=== PATIENT | female | born 1965 | race Asian ===

== ENCOUNTER 2017-01-17 11:08 | Inpatient (IN) | payer OTHER ==
[~2017-01-17] VITALS: Ht 160 cm; Wt 59.2 kg
[2017-01-17 12:52] LABS: BASOPHIL % 0.5 % (0-2); PLATELET COUNT 224 x10^3mcL (130-400); RED CELL DISTRIBUTION WIDTH 13.3 % (11.5-14.5)
[2017-01-17 13:04] LABS: CALCIUM 8.8 mg/dL (8.5-10.1); CARBON DIOXIDE 27.9 mmol/L (21-32); CHLORIDE SERUM 108 mmol/L (98-107); CREATININE SERUM 0.7 mg/dL (0.6-1.0); GFR1 > 60 mL/min; GLUCOSE SERUM 105 mg/dL (74-106); POTASSIUM SERUM 3.7 mmol/L (3.5-5.1); SODIUM SERUM 145 mmol/L (136-145)
[2017-01-17 13:11] LABS: ALBUMIN 3.9 g/dL (3.4-5.0); ALKALINE PHOSPHATASE 55 U/L (46-116); ALT/SGPT 21 U/L (14-59); AST/SGOT 17 U/L (15-37); BILIRUBIN TOTAL 1.12 mg/dL (0.20-1.00); CHOLESTEROL 192 mg/dL (<200); CHOLESTEROL/HDL RATIO 3.8; HDL CHOLESTEROL 50 mg/dL (40-60); LIPASE 111 IU/L (73-393); TOTAL PROTEIN, SERUM 7.6 g/dL (6.4-8.2); TRIGLYCERIDES 117 mg/dL (<150)
[2017-01-17 13:22] LABS: FREE THYROXINE INDEX 3.3 ug/dL (1.4-4.5); T4(THYROXINE) 9.7 ug/dL (4.7-13.3)
[2017-01-17 13:59] LABS: UA SPECIFIC GRAVITY <=1.005 (1.005-1.035); microscopic required? YES; urine erythrocyte TRACE (NEGATIVE)
[2017-01-17 14:59] LABS: T3 TOTAL 1.03 ng/mL
[2017-01-17 16:29] LABS: MAGNESIUM 2.2 mg/dL (1.8-2.4)
[2017-01-17 16:30] LABS: AMPHETAMINE QUAL UR NONE DETECTED (NEG <=1000)
[2017-01-17] MEDS ORDERED: PANTOPRAZOLE SO40 M1 PO (16:34)
[2017-01-17] MEDS ORDERED: XARELTO10 M1 PO (16:34)
[2017-01-17] MEDS ORDERED: XARELTO20 M1 PO (16:53)
[2017-01-17 17:12] LABS: FREE T4 1.23 ng/dL (0.76-1.46)
[2017-01-17 18:28] VITALS: BP 118/82
[2017-01-17 21:41] VITALS: BP 120/70
[2017-01-18 06:15] VITALS: BP 112/62
[2017-01-18 06:40] LABS: CALCIUM 8.3 mg/dL (8.5-10.1); CHLORIDE SERUM 112 mmol/L (98-107); CREATININE SERUM 0.7 mg/dL (0.6-1.0); GFR1 > 60 mL/min; GLUCOSE SERUM 85 mg/dL (74-106); POTASSIUM SERUM 3.9 mmol/L (3.5-5.1); SODIUM SERUM 147 mmol/L (136-145)
[2017-01-18 06:42] LABS: BASOPHIL % 0.4 % (0-2); PLATELET COUNT 180 x10^3mcL (130-400); RED CELL DISTRIBUTION WIDTH 13.2 % (11.5-14.5)
[2017-01-18 06:56] LABS: PHOSPHOROUS 3.9 mg/dL (2.5-4.9)
[2017-01-18 09:22] VITALS: BP 110/43
[2017-01-18 09:44] VITALS: Ht 160 cm; Wt 59.2 kg
[2017-01-18 13:05] VITALS: BP 135/79
[2017-01-18 16:55] VITALS: BP 98/62
[2017-01-18 21:22] VITALS: BP 96/66
[2017-01-19 06:17] VITALS: BP 105/62
[2017-01-19 06:37] LABS: BASOPHIL % 0.3 % (0-2); PLATELET COUNT 200 x10^3mcL (130-400); RED CELL DISTRIBUTION WIDTH 12.8 % (11.5-14.5)
[2017-01-19 06:46] LABS: CALCIUM 8.6 mg/dL (8.5-10.1); CARBON DIOXIDE 24.2 mmol/L (21-32); CHLORIDE SERUM 108 mmol/L (98-107); CREATININE SERUM 0.8 mg/dL (0.6-1.0); GFR1 > 60 mL/min; GLUCOSE SERUM 163 mg/dL (74-106); POTASSIUM SERUM 3.4 mmol/L (3.5-5.1); SODIUM SERUM 142 mmol/L (136-145)
[2017-01-19 09:27] VITALS: BP 99/52
[2017-01-19 11:39] LABS: IRON 62 ug/dL (50-170); TOTAL IRON BINDING CAPACITY 252 ug/dL (250-450)
[2017-01-19 12:13] LABS: RED BLOOD CELLS 3.92 M/mm3 (4.10-5.10)
[2017-01-19 12:30] VITALS: BP 143/83
[2017-01-19 17:11] VITALS: BP 118/67
[2017-01-19 21:04] VITALS: BP 106/68
[2017-01-20 05:22] VITALS: BP 106/56
[2017-01-20 07:35] LABS: ALKALINE PHOSPHATASE 47 U/L (46-116); ALT/SGPT 47 U/L (14-59); AST/SGOT 52 U/L (15-37); BILIRUBIN TOTAL 0.83 mg/dL (0.20-1.00); CALCIUM 8.3 mg/dL (8.5-10.1); CARBON DIOXIDE 25.3 mmol/L (21-32); CHLORIDE SERUM 109 mmol/L (98-107); CREATININE SERUM 0.7 mg/dL (0.6-1.0); GFR1 > 60 mL/min; GLUCOSE SERUM 108 mg/dL (74-106); POTASSIUM SERUM 4.1 mmol/L (3.5-5.1); SODIUM SERUM 144 mmol/L (136-145)
[2017-01-20 07:36] LABS: BASOPHIL % 0.1 % (0-2); PLATELET COUNT 161 x10^3mcL (130-400); RED CELL DISTRIBUTION WIDTH 13.4 % (11.5-14.5)
[2017-01-20 07:43] LABS: ALBUMIN 2.9 g/dL (3.4-5.0)
[2017-01-20 09:00] VITALS: BP 106/56
[2017-01-20 16:38] VITALS: BP 105/64
[2017-01-20 21:08] VITALS: BP 109/64
[2017-01-21 05:49] VITALS: BP 122/65
[2017-01-21 07:37] LABS: ALBUMIN 2.9 g/dL (3.4-5.0); ALKALINE PHOSPHATASE 52 U/L (46-116); ALT/SGPT 44 U/L (14-59); AST/SGOT 41 U/L (15-37); BILIRUBIN TOTAL 0.8 mg/dL (0.20-1.00); CALCIUM 8.1 mg/dL (8.5-10.1); CARBON DIOXIDE 28.7 mmol/L (21-32); CHLORIDE SERUM 107 mmol/L (98-107); CREATININE SERUM 0.8 mg/dL (0.6-1.0); GFR1 > 60 mL/min; GLUCOSE SERUM 82 mg/dL (74-106); MAGNESIUM 1.9 mg/dL (1.8-2.4); PHOSPHOROUS 2.8 mg/dL (2.5-4.9); POTASSIUM SERUM 3.5 mmol/L (3.5-5.1); SODIUM SERUM 144 mmol/L (136-145)
[2017-01-21 08:28] VITALS: BP 106/71
[2017-01-21 10:52] VITALS: BP 106/71
[2017-01-21 11:47] LABS: PLATELET COUNT 147 x10^3mcL (130-400); RED CELL DISTRIBUTION WIDTH 12.2 % (11.5-14.5)
[2017-01-21] MEDS ORDERED: FER300 PO (11:47)
[2017-01-21 11:48] LABS: BASOPHIL % 4.1 % (0-2)
[2017-01-21] MEDS ORDERED: VITAMIN C500 M4 PO (11:48)
[2017-01-21] MEDS ORDERED: TYLENOL325 M1 PO ×2 (12:56→12:57)
== END 2017-01-21 15:00 | disposition home or self-care (01) | DRG 418 ==
LOC: ED 11:08 → DU 15:16 → MU 15:16 → DU 17:21 → MU 01-19 20:13
PROVIDERS: Family Medicine; Specialist; Surgery; ADMIT Family Medicine
PROC: 0FT44ZZ Resection of Gallbladder, Percutaneous Endoscopic Approach (ICD-10-PCS; principal; 2017-01-19 10:00)
DX: K81.0 Acute cholecystitis (principal); N39.0 Urinary tract infection, site not specified; E44.0 Moderate protein-calorie malnutrition; I48.2 Chronic atrial fibrillation; E87.6 Hypokalemia; E80.6 Other disorders of bilirubin metabolism; R73.03 Prediabetes; E78.00 Pure hypercholesterolemia, unspecified; D64.9 Anemia, unspecified; Z68.23 Body mass index [BMI] 23.0-23.9, adult; Z79.01 Long term (current) use of anticoagulants
CPT/HCPCS: 83880; 84439; 94150; J0330; J1644; J1885; J1956; J2060; J2175; J2250; J2270; J2405; J2704; J2710; J3010; J3480; J3490; J7030; J7120; Q0092; Q9967